=== PATIENT | female | born 1950 | race Caucasian/White ===

== ENCOUNTER 2017-04-09 20:04 | Emergency (ER) | payer MEDICARE ==
[2017-04-09 20:12] VITALS: RESP 18
[2017-04-09] MEDS ORDERED: SODIUM CHLORIDE 0.9% 1,000 ML IV STA (20:30)
[2017-04-09] MEDS ORDERED: ONDANSETRON 4 MG/2 ML VIAL IVP STA (20:30)
[2017-04-09] MEDS ORDERED: ACETAMINOPHEN TAB 500 MG TAB PO STA (20:31)
--- NOTE | 2017-04-09 21:00 | XR ---
EXAMINATION TYPE: XR chest 2V DATE OF EXAM: 04/09/2017 COMPARISON: NONE HISTORY: Cough and congestion TECHNIQUE: Frontal and lateral views of the chest are obtained. FINDINGS: There is no focal air space opacity, pleural effusion, or pneumothorax seen. The cardiac silhouette size is within normal limits. The osseous structures are intact. IMPRESSION: No acute cardiopulmonary process.
[2017-04-09 21:02] LABS: Basophils % (A) 0 %; CH 30.2; CHCM 34.6; Eosinophils # (A) 0.1 k/uL (0-0.7); Eosinophils % (A) 1 %; HCT 40.9 % (34.0-46.0); HDW 2.69; Luc % (Auto) 1; Lymphocytes # (A) 0.3 k/uL (1.0-4.8); Lymphocytes % (A) 4 %; MCH 30.1 pg (25.0-35.0); MCHC 34.3 g/dL (31.0-37.0); MCV 87.9 fL (80.0-100.0); Mean Platelet Volume 7.3; Monocytes # (A) 0.4 k/uL (0-1.0); Monocytes % (A) 6 %; Neutrophils # (A) 6.5 k/uL (1.3-7.7); Neutrophils % (A) 88 %; RBC 4.65 m/uL (3.80-5.40); RDW 13.1 % (11.5-15.5); WBC 7.4 k/uL (3.8-10.6); WBC (Perox) 7.56
[2017-04-09 21:13] LABS: ALT 36 U/L (9-52); AST 48 U/L (14-36); Alkaline Phosphatase 80 U/L (38-126); Amylase 47 U/L (30-110); Anion Gap 12 mmol/L; Blood Urea Nitrogen 9 mg/dL (7-17); Calcium 8.8 mg/dL (8.4-10.2); Carbon Dioxide 22 mmol/L (22-30); Chloride 102 mmol/L (98-107); Glucose 118 mg/dL (74-99); Non-African American GFR(MDRD) >60 (>60 ml/min/1.73 sqM); Potassium 4.1 mmol/L (3.5-5.1); Sodium 136 mmol/L (137-145); Total Bilirubin 0.9 mg/dL (0.2-1.3); Total Protein 6.9 g/dL (6.3-8.2)
--- NOTE | 2017-04-09 21:17 | ED ---
General Adult HPI - General Chief complaint: Nausea/Vomiting/Diarrhea Stated complaint: vomiting Time Seen by Provider: 04/09/17 20:25 Source: patient, family, RN notes reviewed Mode of arrival: ambulatory Limitations: no limitations - History of Present Illness Initial comments: This a 66-year-old female presents emergency Department chief complaint of generalized not feeling well. She states that she's been sick with cold-like symptoms cough congestion runny nose over the last 3 days. Patient went to her primary care physician's office today was diagnosed with sinusitis. Patient was placed on Levaquin. She states that she was given a shot of antibiotics there and sent home on Levaquin. Patient states she did take a dose. She states afternoon started developing some nausea vomiting. She states that symptoms did this with the drainage. Denies any dysuria, hematuria, diarrhea constipation. Denies any chest pain or shortness of breath. She states her cough is productive at times - Related Data Home Medications Medication Instructions Recorded Confirmed Ascorbic Acid [Vitamin C] 1,000 mg PO DAILY 04/09/17 04/09/17 Aspirin EC [Ecotrin Low Dose] 81 mg PO DAILY 04/09/17 04/09/17 Atorvastatin Calcium [Lipitor] 20 mg PO HS 04/09/17 04/09/17 Biotin 5 mg PO DAILY 04/09/17 04/09/17 Calcium/Magnesium 1000mg/500mg 1 tab PO DAILY 04/09/17 04/09/17 Cholecalciferol [Vitamin D3] 2,000 unit PO DAILY 04/09/17 04/09/17 Ginkgo Biloba [place] Extract [Ginkgo 120 mg PO DAILY 04/09/17 04/09/17 Biloba Extract] Levofloxacin [Levaquin] 500 mg PO DAILY 04/09/17 04/09/17 Lutein 20 mg PO DAILY 04/09/17 04/09/17 Multivitamins, Thera [Multivitamin 1 tab PO DAILY 04/09/17 04/09/17 (formulary)] Oxybutynin Chloride [Ditropan] 5 mg PO BID 04/09/17 04/09/17 Ubidecarenone [Co Q-10] 100 mg PO DAILY 04/09/17 04/09/17 Previous Rx's Medication Instructions Recorded Ondansetron Odt [Zofran Odt] 4 mg PO Q8HR PRN #10 tab 04/09/17 Allergies Allergy/AdvReac Type Severity Reaction Status Date / Time cephalexin [From Keflex] Allergy Abdominal Verified 04/09/17 20:42 Pain Review of Systems ROS Statement: Those systems with pertinent positive or pertinent negative responses have been documented in the HPI. ROS Other: All systems not noted in ROS Statement are negative. Past Medical History Past Medical History: Hyperlipidemia History of Any Multi-Drug Resistant Organisms: None Reported Past Surgical History: No Surgical Hx Reported Past Psychological History: No Psychological Hx Reported Smoking Status: Never smoker Past Alcohol Use History: None Reported Past Drug Use History: None Reported General Exam Limitations: no limitations General appearance: alert, in no apparent distress Head exam: Present: atraumatic, normocephalic, normal inspection Eye exam: Present: normal appearance, PERRL, EOMI. Absent: scleral icterus, conjunctival injection, periorbital swelling ENT exam: Present: mucous membranes moist, TM's normal bilaterally, normal external ear exam. Absent: normal oropharynx (Post nasal drainage, mild sinus tenderness) Neck exam: Present: normal inspection, full ROM. Absent: tenderness, meningismus, lymphadenopathy Respiratory exam: Present: rhonchi (Right mid to lower). Absent: normal lung sounds bilaterally, respiratory distress, wheezes, rales, stridor Cardiovascular Exam: Present: regular rate, normal rhythm, normal heart sounds. Absent: systolic murmur, diastolic murmur, rubs, gallop, clicks GI/Abdominal exam: Present: soft, normal bowel sounds. Absent: distended, tenderness, guarding, rebound, rigid Back exam: Absent: CVA tenderness (R), CVA tenderness (L) Skin exam: Present: warm, dry, intact, normal color. Absent: rash Course Vital Signs 04/09/17 20:10 Temperature 101.3 F H Pulse Rate 98 Respiratory 18 Rate Blood Pressure 130/60 O2 Sat by Pulse 97 Oximetry Medical Decision Making - Medical Decision Making 66-year-old female presents emergency Department for cough, congestion and nausea and vomiting Patient does feel improved after antiemetics and fluids. Patient's chest x-ray read by radiologist as no acute abnormality though patient had some rhonchi right lower. Patient is currently on antibiotics prescribed by PCP she'll continue this. Return parameters were discussed. - Lab Data Result diagrams: 04/09/17 20:44 04/09/17 20:44 Lab Results 04/09/17 04/09/17 Range/Units 20:44 20:44 WBC 7.4 (3.8-10.6) k/uL RBC 4.65 (3.80-5.40) m/uL Hgb 14.0 (11.4-16.0) gm/dL Hct 40.9 (34.0-46.0) % MCV 87.9 (80.0-100.0) fL MCH 30.1 (25.0-35.0) pg MCHC 34.3 (31.0-37.0) g/dL RDW 13.1 (11.5-15.5) % Plt Count 190 (150-450) k/uL Neutrophils % 88 % Lymphocytes % 4 % Monocytes % 6 % Eosinophils % 1 % Basophils % 0 % Neutrophils # 6.5 (1.3-7.7) k/uL Lymphocytes # 0.3 L (1.0-4.8) k/uL Monocytes # 0.4 (0-1.0) k/uL Eosinophils # 0.1 (0-0.7) k/uL Basophils # 0.0 (0-0.2) k/uL Sodium 136 L (137-145) mmol/L Potassium 4.1 (3.5-5.1) mmol/L Chloride 102 (98-107) mmol/L Carbon Dioxide 22 (22-30) mmol/L Anion Gap 12 mmol/L BUN 9 (7-17) mg/dL Creatinine 0.61 (0.52-1.04) mg/dL Est GFR (MDRD) Af Amer >60 (>60 ml/min/1.73 sqM) Est GFR (MDRD) Non-Af >60 (>60 ml/min/1.73 sqM) Glucose 118 H (74-99) mg/dL Calcium 8.8 (8.4-10.2) mg/dL Total Bilirubin 0.9 (0.2-1.3) mg/dL AST 48 H (14-36) U/L ALT 36 (9-52) U/L Alkaline Phosphatase 80 (38-126) U/L Total Protein 6.9 (6.3-8.2) g/dL Albumin 4.0 (3.5-5.0) g/dL Amylase 47 (30-110) U/L Lipase 62 (23-300) U/L Disposition Clinical Impression: Nausea & vomiting, Acute bacterial bronchitis Disposition: HOME SELF-CARE Condition: Stable Instructions: Acute Nausea and Vomiting (ED) Additional Instructions: Please return to the Emergency Department if symptoms worsen or any other concerns. Prescriptions: Ondansetron Odt [Zofran Odt] 4 mg PO Q8HR PRN #10 tab PRN Reason: Nausea Referrals: Jake Bourgeois DO [Primary Care Provider] - 1-2 days Time of Disposition: 21:22
[2017-04-09 21:34] VITALS: BP 103/53; PULSE 89; TEMP 100.8
== END 2017-04-09 21:34 | disposition home or self-care (01) ==
LOC: EC 20:04
DX: J20.9 Acute bronchitis, unspecified (principal); R11.2 Nausea with vomiting, unspecified; E78.5 Hyperlipidemia, unspecified; Z79.82 Long term (current) use of aspirin; Z79.899 Other long term (current) drug therapy; Z88.1 Allergy status to other antibiotic agents
CPT/HCPCS: 36415; 80053; 82150; 83690; 85025; 71020; 99284; 96374; 96361; J2405

== ENCOUNTER → 2018-11-04 | Outpatient (CLI) | payer MEDICARE ==
--- NOTE | 2018-11-04 11:20 | XR ---
Cervical spine HISTORY: Neck pain 5 views of the cervical spine Cervical vertebral bodies show preserved height, bone mineralization is mildly reduced. Anterolisthes is grade 1 C2-3, retrolisthesis grade 1 C5-6. Loss of disc height present at the intervertebral level s C3-4 through C7-T1. There is multilevel spondylosis. Prevertebral soft tissues are normal. Multilev el facet arthropathy changes. Odontoid view is limited. No significant foraminal encroachment on the left, some right-sided foraminal encroachment at C5-6. IMPRESSION: Degenerative disc disease, facet arthropathy.
== END | disposition home or self-care (01) ==
LOC: RADXRYALE 10:20
PROVIDERS: ATTEND Physician Assistant Medical
DX: M50.30 Other cervical disc degeneration, unspecified cervical region (principal); M46.92 Unspecified inflammatory spondylopathy, cervical region
CPT/HCPCS: 72050

== ENCOUNTER → 2019-12-02 | Outpatient (CLI) | payer MEDICARE ==
--- NOTE | 2019-12-02 15:41 | XR ---
Abdomen 2 view HISTORY: Pain 2 views the abdomen There is a scoliotic curvature to the lumbar spine. Lung bases are clear. There is ill-defined cresce ntic increased density present in the left hemiabdomen seen on one of the 2 views. No evident bowel o bstruction or pneumoperitoneum. Probable vascular calcifications within the pelvis. There is overlyin g artifact. IMPRESSION: Ill-defined increased attenuation may be due to radiopaque medicine, correlate for histor y. Nonobstructive bowel gas pattern. Scoliosis.
== END | disposition home or self-care (01) ==
LOC: RADXRYALE 14:34
PROVIDERS: ATTEND Physician Assistant Medical
DX: R10.84 Generalized abdominal pain (principal)
CPT/HCPCS: 74019

== ENCOUNTER → 2019-12-26 | Outpatient (CLI) | payer MEDICARE ==
--- NOTE | 2019-12-26 10:37 | FL ---
"EXAMINATION TYPE: FL barium swallow DATE OF EXAM: 12/26/2019 CLINICAL HISTORY: Dysphagia and reflux TECHNIQUE: A double contrast esophagram is performed utilizing air and barium. A total of 68 second s of fluoroscopic time was utilized during procedure. 31 fluoroscopic images were saved. COMPARISON: None FINDINGS: The upper esophagus shows normal motility. There is marked delayed emptying into the stomac h at the distal esophagus just before the gastroesophageal junction on multiple swallowing attempts. This results in stasis of contrast in the distal esophagus and moderate intraesophageal reflux. Event ual passage through the distal esophagus is seen into the stomach. No hiatal hernia is seen. IMPRESSION: Distal esophageal nonobstructive stricture resulting in delayed passage of contrast throu gh the distal esophagus and moderate intraesophageal reflux. Endoscopy is recommended. 1. A Yellow level critical message alert has been initiated for Jake Bourgeois DO via the [employer] | Critical Results System on 12/26/2019 10:34 AM. This message alert has been sent to Jake Noe DO via the preferences provided by the clinician for the receipt of Radiology Critical Find ings. Message ID [id number]."
== END | disposition home or self-care (01) ==
LOC: RADUSWWP 09:50
PROVIDERS: ATTEND Family Medicine
DX: K21.9 Gastro-esophageal reflux disease without esophagitis (principal); K22.2 Esophageal obstruction
CPT/HCPCS: 74220

== ENCOUNTER → 2020-03-26 | Outpatient (CLI) | payer MEDICARE | END | disposition home or self-care (01) | LOC: LABWHC1 10:48 | PROVIDERS: ATTEND Internal Medicine | DX: Z11.59 Encounter for screening for other viral diseases (principal) ==

== ENCOUNTER → 2020-03-30 | Day surgery (SDC) | payer MEDICARE ==
[2020-03-26 09:04] VITALS: BMI 20.9
[~2020-03-30] MED LIST: LACTATED RINGERS 1,000 ML IV SCH; LIDOCAINE 1% (10MG/ML) FOR IV START INTRADERMA PRN; PROPOFOL 10 MG/ML 20 ML VIAL IV ONE
[2020-03-30 07:47] VITALS: RESP 17; TEMP 98
--- NOTE | 2020-03-30 08:30 | P.PCN ---
Date of Procedure: 03/30/20 Description of Procedure: BRIEF HISTORY: Patient is a 69-year-old female with a known history of GERD presenting for evaluation of dysphagia. Reports intermittent dysphagia, leading to solid foods. She does have a known history of GERD on PPI therapy. PROCEDURE PERFORMED: Esophagogastroduodenoscopy with biopsy and scope balloon dilation . PREOPERATIVE DIAGNOSIS: Esophageal dysphagia, GERD ESTIMATED BLOOD LOSS: Minimal. IV sedation per anesthesia. PROCEDURE: After informed consent was obtained, the patient was brought into the endoscopy unit. IV sedation was administered by Anesthesia under continuous monitoring. Initially the Olympus GIF-190 video endoscope was inserted into the mouth. Esophagus intubated without any difficulty. It was gradually advanced into the stomach and duodenum and carefully examined. The bulb and the second part of the duodenum appeared normal, With biopsies. The scope at this time was withdrawn to the stomach, adequately insufflated with air, and upon careful examination, mucosa of the antrum, body, cardia and the fundus appeared normal, Except for some mild scattered erythema in the antrum and body suggestive of mild gastritis with biopsies taken. The scope was then withdrawn into the esophagus. The GE junction was located at 39 cm from the incisors. The esophagus appearedgrossly normal however was somewhat tortuous suggestive of presbyesophagus with mid esophageal biopsies taken. The distal esophagus was also dilated with a through -the-scope balloon dilator serially to 15 mm and 16.5 mm respectively. There were no erosions or ulcerations seen and the patient tolerated the procedure well. IMPRESSION: 1. Mild gastritis antrum and body, biopsied . 2. No strictures or masses noted but the esophagus was somewhat tortuous suggestive of presbyesophagus, with mid esophageal biopsies taken and serial dilation of the distal esophagus with a scope balloon dilator. 3. Duodenal biopsies. RECOMMENDATIONS: The findings of this examination were discussed with the patient. Okay to resume diet. Continue PPI therapy. Await pathology from biopsies. Would recommend with some modifications including sitting upright while eating, eating slowly, small bites of food and sips of liquids between bites of solid food. If dysphagia persists can consider manometry for further evaluation.
[2020-03-30 08:40] VITALS: BP 110/73; PULSE 78
== END ==
LOC: ORWHC2ENDO 07:18
PROVIDERS: ATTEND Internal Medicine
DX: K22.8 Other specified diseases of esophagus (principal); K21.9 Gastro-esophageal reflux disease without esophagitis; K29.50 Unspecified chronic gastritis without bleeding; Z98.51 Tubal ligation status; Z98.890 Other specified postprocedural states; Z97.2 Presence of dental prosthetic device (complete) (partial); E78.5 Hyperlipidemia, unspecified; Z79.82 Long term (current) use of aspirin; Z79.899 Other long term (current) drug therapy; Z88.1 Allergy status to other antibiotic agents
CPT/HCPCS: 88305; 88312; 43239; 43249; J2704; C1726

== ENCOUNTER → 2020-06-24 | Day surgery (SDC) | payer MEDICARE ==
[2020-06-21 09:18] VITALS: BMI 20.7
[~2020-06-24] MED LIST changes: +LACTATED RINGERS 1,000 ML IV ONE; +LIDOCAINE 1% (10MG/ML) FOR IV START INTRADERMA ONE; -LIDOCAINE 1% (10MG/ML) FOR IV START INTRADERMA PRN
[2020-06-24 09:18] VITALS: TEMP 97.3
--- NOTE | 2020-06-24 11:01 | P.PCN ---
Date of Procedure: 06/24/20 Description of Procedure: BRIEF HISTORY: Patient is a 69-year-old female presented for outpatient colonoscopy for evaluation of colon polyps. Last colonoscopy approximately 6 years ago per the patient report. No abdominal pain, family history of colon cancer or blood per rectum reported. PROCEDURE PERFORMED: Colonoscopy with polypectomy. PREOPERATIVE DIAGNOSIS: Personal history of colon polyps, patient reports last colonoscopy 6 years ago. ESTIMATED BLOOD LOSS: Minimal. IV sedation per Anesthesia. PROCEDURE: After informed consent was obtained, the patient, was brought into the endoscopy unit. IV sedation was administered by Anesthesia under continuous monitoring. Digital rectal examination was normal. Initially the Olympus CF-190 flexible video colonoscope was then inserted in the rectum, gradually advanced into the cecum without any difficulty. Careful examination was performed as the scope was gradually being withdrawn. Ileocecal valve and the appendiceal orifice were visualized and appeared normal. Prep was excellent. 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 There was diminutive 2 mm sessile polyp found in the descending colon removed with cold forcep polypectomy. A few small scattered diverticula also noted in the left colon. Retroflexion was performed in the rectum and no lesions were seen. The patient tolerated the procedure well. IMPRESSION: Diminutive descending colon polyp removed with cold forcep polypectomy. Mild left colonic diverticulosis. RECOMMENDATIONS: Findings of this examination were discussed with the patient and her sister. Okay to resume diet. Okay to resume medications. No pathology from polypectomy. Would recommend repeat colonoscopy in 7 years pending pathology from polypectomy.
[2020-06-24 11:24] VITALS: RESP 18
[2020-06-24 11:48] VITALS: BP 131/68; PULSE 64
== END ==
LOC: ORWHC2ENDO 08:55
PROVIDERS: ATTEND Internal Medicine
DX: Z12.11 Encounter for screening for malignant neoplasm of colon (principal); D12.4 Benign neoplasm of descending colon; K57.30 Diverticulosis of large intestine without perforation or abscess without bleeding; Z86.010 Personal history of colon polyps; Z88.1 Allergy status to other antibiotic agents; Z88.0 Allergy status to penicillin; Z79.899 Other long term (current) drug therapy; Z98.890 Other specified postprocedural states; E78.5 Hyperlipidemia, unspecified; K21.9 Gastro-esophageal reflux disease without esophagitis; Z97.2 Presence of dental prosthetic device (complete) (partial)
CPT/HCPCS: 88305; 45380; J2704

== ENCOUNTER → 2022-10-31 | Outpatient (CLI) | payer MEDICARE ==
--- NOTE | 2022-11-01 09:51 | XR ---
EXAM TYPE: LUMBAR SPINE X RAY SERIES COMPARISON: NONE HISTORY: Pain TECHNIQUE: 4 views are submitted. FINDINGS: Alignment is anatomic. The pedicles are intact. The transverse processes are intact. There is scol iosis with multilevel severe degenerative disc disease. Hypertrophic spurring. Facet arthropathy with in the lower lumbar spine. IMPRESSION: Scoliosis with multilevel moderate to severe degenerative disc disease.
== END | disposition home or self-care (01) ==
LOC: RADXRYALE 15:28
PROVIDERS: ATTEND Family Medicine
DX: M51.36 Other intervertebral disc degeneration, lumbar region (principal); M41.86 Other forms of scoliosis, lumbar region
CPT/HCPCS: 72110

== ENCOUNTER → 2023-08-22 | Outpatient (CLI) | payer MEDICARE ==
--- NOTE | 2023-08-22 23:33 | BD ---
EXAMINATION TYPE: Axial Bone Density DATE OF EXAM: 08/22/2023 CLINICAL HISTORY: 72 years old Female. ICD-10 CODE: M81.0 AGE RELATED OSTEOPOROSIS Height: 60.2 in Weight: 111 lbs FRAX RISK QUESTIONS: Secondary Osteoporosis: 3. Menopause before 45: age 50 RISK FACTORS HISTORY OF: Family History of Osteoporosis: yes mother Active: yes Diet low in dairy products/other sources of calcium: yes Postmenopausal woman: age 50 MEDICATIONS: Osteoporosis Medications: yes Which medication: alendronate sodium How Lon year + Additional Medications: cholesterol, inflammation meds, muscle spasm meds EXAM MEASUREMENTS: Bone mineral densitometry was performed using the [employer] System. Bone mineral density as measured about the Lumbar spine is: ----- L1-L4(G/cm2): 1.141 T Score Values are as follows: ----- L1: -1.1 ----- L2: -1.4 ----- L3: 0.0 ----- L4: 0.7 ----- L1-L4: -0.3 Z Score Values are as follows: ----- L1: 1.1 ----- L2: 0.8 ----- L3: 2.2 ----- L4: 2.9 ----- L1-L4: 1.9 Bone mineral density has: Increased 4.5% since study of: 02/10/2016 Bone mineral density about the R hip (g/cm2): 0.838 Bone mineral density about the L hip (g/cm2): 0.811 T Score values are as follows: -----R Neck: -1.4 -----L Neck: -1.2 -----R Total: -1.3 -----L Total: -1.6 Z Score values are as follows: -----R Neck: 0.8 -----L Neck: 0.9 -----R Total: 0.6 -----L Total: 0.4 FRAX%s: The graph provided illustrates a 9.4% chance for a major osteoporotic fx and a 1.6% chance fo r the hips probability for fx in 10 years time. IMPRESSION: Osteopenia (T Score between -2.5 and -1). There is slightly increased risk of fracture and the patient may be considered for treatment. Re-Screen 2-5 years. NOTE: T-SCORE=SD OF THE YOUNG ADULT MEAN.
--- NOTE | 2023-08-23 10:05 | MM ---
Reason for Exam: Screening (asymptomatic). Last screening mammogram was performed 12 month(s) ago. Patient History: Menarche at age 12. First Full-Term at age 19. Postmenopausal. 2000, Benign Core Biopsy on the left side. Risk Values: Melanie 5 year model risk: 1.5%. NCI Lifetime model risk: 3.9%. Prior Study Comparison: Screening Mammogram, [facility]. 04/10/2008 Bilateral Screening Mammogram, [facility]. 12/31/2015 Left Diagnostic Ultrasound, [facility]. 04/19/2020 Bilateral Screening Mammogram, [facility]. 05/24/2021 Bilateral Screening Mammogram, [facility]. 08/11/2022 Bilateral Screening Mammogram, Unknown. Tissue Density: The breast tissue is heterogeneously dense. This may lower the sensitivity of mammography. Findings: Analyzed By CAD. There is no suspicious group of microcalcifications or new suspicious mass in either breast. Biopsy clip within the left breast. Overall Assessment: Benign, BI-RAD 2 Management: Screening Mammogram of both breasts in 1 year. A clinical breast exam by your physician is recommended on an annual basis and results should be correlated with mammographic findings. Note on Melanie scores and lifetime risk: 1. A Melanie score greater than 3% is considered moderate risk. If this is the case, consider specialist referral to assess eligibility for a risk reducing agent. If overall lifetime risk for the development of breast cancer is 20% or higher, the patient may qualify for future screening with alternating mammogram and breast MRI. Electronically signed and approved by: Rashard Velarde D.O.
== END | disposition home or self-care (01) ==
LOC: RADMAMWWP 12:59
PROVIDERS: ATTEND Family Medicine
DX: Z12.31 Encounter for screening mammogram for malignant neoplasm of breast (principal); M81.0 Age-related osteoporosis without current pathological fracture; M85.89 Other specified disorders of bone density and structure, multiple sites; Z78.0 Asymptomatic menopausal state
CPT/HCPCS: 77063; 77067; 77080

== ENCOUNTER → 2024-03-07 | Outpatient (CLI) | payer MEDICARE ==
[2024-03-07 14:32] LABS: Basophils # (A) 0.04 X 10*3/uL (0.00-0.10); Basophils % (A) 0.8 %; Eosinophils # (A) 0.08 X 10*3/uL (0.04-0.35); Eosinophils % (A) 1.7 %; HCT 43.1 % (37.2-46.3); HGB 13.7 g/dL (12.0-15.0); Lymphocytes # (A) 1.29 X 10*3/uL (0.90-5.00); MCH 29.7 pg (27.0-32.0); MCHC 31.8 g/dL (32.0-37.0); MCV 93.3 FL (80.0-97.0); Mean Platelet Volume 10.9 FL (9.5-12.2); Monocytes # (A) 0.61 X 10*3/uL (0.20-1.00); Monocytes % (A) 12.8 %; NRBC Per 100 WBC 0 X 10*3/uL (0.00-0.01); Neutrophils # (A) 2.75 X 10*3/uL (1.80-7.70); Neutrophils % (A) 57.5 %; Platelet Count 247 X 10*3/uL (140-440); RBC 4.62 X 10*6/uL (4.10-5.20); RDW 13.5 % (11.5-14.5); WBC 4.78 X 10*3/uL (4.50-10.00)
[2024-03-07 15:32] LABS: Blood Urea Nitrogen 23.1 mg/dL (9.0-27.0); Carbon Dioxide 28.4 mmol/L (21.6-31.8); Chloride 105 mmol/L (96-109); Potassium 4.1 mmol/L (3.5-5.5); Sodium 146 mmol/L (135-145)
== END | disposition home or self-care (01) ==
LOC: LABPAT 09:24
PROVIDERS: ATTEND Family Medicine
DX: Z01.818 Encounter for other preprocedural examination (principal); N81.11 Cystocele, midline; R94.31 Abnormal electrocardiogram [ECG] [EKG]
CPT/HCPCS: 80051; 82565; 84520; 85025; 86850; 86900; 86901; 87086; 93005

== ENCOUNTER 2024-03-17 05:37 | Day surgery (SDC) | payer MEDICARE ==
[2024-03-11 12:11] VITALS: BMI 18.1
--- NOTE | 2024-03-14 09:45 | P.HPIHPCON ---
History of Present Illness H&P Date: 03/14/24 Chief Complaint: Pelvic Organ Prolapse Ms. Reece is a 73 year old with pelvic organ prolapse for the past 2 years. She has a lemon sized bulge at the vagina. She also complains of urge incontinence. She denies stress incontinence or fecal incontinence. She is no longer sexually active. Consent for Procedure: I have explained the operation/procedure to the patient, including the risks, benefits, side effects, alternative therapies (including not receiving the proposed treatment or service), the likelihood of the patient achieving his/her goals, and potential recuperation problems for the procedure/sedation/analgesia, as well as any blood products, if indicated. I also explained to the patient the risks, benefits and side effects of the alternatives, as well as the risks related to not receiving the proposed procedure, care, treatment, or services. Past Medical History Past Medical History: Cancer, GERD/Reflux, Hyperlipidemia, Mitral Valve Prolapse (MVP) Additional Past Medical History / Comment(s): prolapse uterus, follows with Dr Uribe every 6 months for mitral valve prolapse w/ regurgitation, hx. colon polyps,skin CA removed neck and left leg History of Any Multi-Drug Resistant Organisms: None Reported Past Surgical History: Orthopedic Surgery Additional Past Surgical History / Comment(s): EGD/colonoscopy, bunionectomy,agnes cataracts Past Anesthesia/Blood Transfusion Reactions: No Reported Reaction Smoking Status: Never smoker - Past Family History Mother Additional Family Medical History / Comment(s): heart problems Medications and Allergies Home Medications Medication Instructions Recorded Confirmed Type Ascorbic Acid [Vitamin C] 1,000 mg PO DAILY 04/09/17 03/11/24 History Atorvastatin Calcium [Lipitor] 20 mg PO HS 04/09/17 03/11/24 History Biotin 5 mg PO DAILY 04/09/17 03/11/24 History Cholecalciferol [Vitamin D3] 2,000 unit PO DAILY 04/09/17 03/11/24 History Ginkgo Biloba [place] Extract [Ginkgo 120 mg PO DAILY 04/09/17 03/11/24 History Biloba Extract] Lutein 20 mg PO DAILY 04/09/17 03/11/24 History Ubidecarenone [Co Q-10] 100 mg PO DAILY 04/09/17 03/11/24 History oxyBUTYnin chloride [Ditropan] 5 mg PO BID 04/09/17 03/11/24 History Omeprazole [PriLOSEC] 20 mg PO DAILY PRN 03/30/20 03/11/24 History diphenhydrAMINE [Benadryl] 25 mg PO HS PRN 06/21/20 03/11/24 History Acetaminophen [Tylenol Extra 650 mg PO DAILY PRN 03/11/24 03/11/24 History Strength] Alendronate Sodium [Fosamax] 70 mg PO MO 03/11/24 03/11/24 History Calcium Carbonate [Calcium] 500 mg PO DAILY 03/11/24 03/11/24 History Cetirizine HCl [Zyrtec] 10 mg PO DAILY 03/11/24 03/11/24 History Cider Vinegar [Apple Cider Vinegar] 300 mg PO DAILY 03/11/24 03/11/24 History Cyclobenzaprine [Flexeril] 5 - 10 mg PO DAILY PRN 03/11/24 03/11/24 History Docusate [Colace] 100 mg PO DAILY 03/11/24 03/11/24 History Magnesium Oxide [Magnesium] 500 mg PO DAILY 03/11/24 03/11/24 History Melatonin 10 mg PO HS 03/11/24 03/11/24 History Meloxicam [Mobic] 15 mg PO DAILY 03/11/24 03/11/24 History Turmeric Root Extract [Turmeric] 500 mg PO DAILY 03/11/24 03/11/24 History Zinc Gluconate [Zinc] 50 mg PO DAILY 03/11/24 03/11/24 History polyethylene glycoL 3350 [Miralax] 17 gm PO DAILY 03/11/24 03/11/24 History Allergies Allergy/AdvReac Type Severity Reaction Status Date / Time adhesive tape Allergy Rash/Hives Verified 03/11/24 12:02 amoxicillin [From Augmentin] Allergy throat Verified 03/11/24 11:41 swelling cephalexin [From Keflex] Allergy Abdominal Verified 03/11/24 11:41 Pain clavulanic acid Allergy throat Verified 03/11/24 11:41 [From Augmentin] swelling Surgical - Exam Focused physical exam is performed. This is a healthy appearing female in no apparent distress. Breathing is non-labored. Abdomen is soft and non-tender. On pelvic exam, a grade 3 cystocele and grade 2 uterovaginal prolapse is appreciated. Extremities are non-tender and non-edematous. Assessment and Plan Assessment: 73 year old with Grade 3 Cystocele and Grade 2 Uterovaginal Prolapse who presents for Total Vaginal Hysterectomy, Anterior Repair. Plan: Risks, benefits, and alternatives to Total Vaginal Hysterectomy, Anterior Repair are discussed with the patient including risk of bleeding, infection, damage to surrounding structures including bladder/bowel/ureters, post-operative VTE. The patient understands these risks and desires to proceed with surgery as discussed. All questions are answered.
[2024-03-17] MEDS: LACTATED RINGERS 1,000 ML IV SCH (06:45)
[2024-03-17] MEDS: LIDOCAINE 1% (10MG/ML) FOR IV START INTRADERMA ONE (06:45)
[2024-03-17] MEDS: MIDAZOLAM 2 MG/2 ML VIAL IV PRN (07:07)
[2024-03-17] MEDS: DEXAMETHASONE SOD PHOSPHATE 4 MG/ML 1 ML VIAL IV ONE (07:15)
[2024-03-17] MEDS: ONDANSETRON 4 MG/2 ML VIAL IVP ONE (07:15)
[2024-03-17] MEDS: ESTRADIOL 0.1 MG/GM VAGINAL CREAM 42.5 GM TUBE VAGINAL ONE (07:24)
[2024-03-17] MEDS: VASOPRESSIN 20 UNIT/ML 1 ML VIAL SQ ONE ×2 (07:25)
[2024-03-17] MEDS ORDERED: PROPOFOL 10 MG/ML 20 ML VIAL IV ONE (07:26)
[2024-03-17] MEDS ORDERED: SUCCINYLCHOLINE CHLORIDE 200 MG/10 ML VIAL IV ONE (07:26)
[2024-03-17] MEDS ORDERED: LIDOCAINE 1% INJ 10MG/ML (20 ML MDV) ONE (07:26)
[2024-03-17] MEDS ORDERED: fentaNYL (PF) 50 MCG/ML 2 ML AMP ONE (07:26)
[2024-03-17] MEDS ORDERED: ROCURONIUM 10 MG/ML (5 ML VIAL) IV ONE (07:26)
[2024-03-17] MEDS ORDERED: GLYCOPYRROLATE 0.2 MG/ML 2 ML VIAL ONE (07:26)
[2024-03-17] MEDS ORDERED: NEOSTIGMINE 1 MG/ML 10 ML VIAL ONE (07:26)
--- NOTE | 2024-03-17 07:27 | P.ANPRN ---
Procedure Note - Anesthesia - Epidural/Spinal Spinal Time Out Performed: Yes Date of Procedure: 03/17/24 Procedure Start Time: 07:07 Procedure Stop Time: 07:15 Location of Patient: PreOp Indication: Acute Post-Operative Pain, Analgesia, Requested by Surgeon Sedation Type: Sedate with meaningful contact maintained Preparation: Sterile Prep Position: Sitting Catheter: None Needle Guage: 22 Injectate: Duramorph 0.3mg, L4-5 level Blood Aspirated: No Pain Paresthesia on Injection Noted: No Events: Uneventful and Well Tolerated
[2024-03-17] MEDS: LACTATED RINGERS 1,000 ML IV ONE (08:08)
--- NOTE | 2024-03-17 08:48 | P.OP ---
Date of Procedure: 03/17/24 Preoperative Diagnosis: 1. Grade 3 Cystocele 2. Grade 2 Uterovaginal Prolapse Postoperative Diagnosis: Same Procedure(s) Performed: Total Vaginal Hysterectoy, Bilateral Salpingoophorectomy Implants: None Surgeon: Gail Berry Manager Front #1: Altagracia Cocharn Estimated Blood Loss (ml): 25 IV fluids (ml): 700 Urine output (ml): 150 Pathology: other (uterus, cervix, fallopian tubes, ovaries) Condition: stable Disposition: floor Indications for Procedure: 73 year old with Grade 3 Cystocele and Grade 2 Uterovaginal Prolapse who presents for Total Vaginal Hysterectomy, Anterior Repair. Risks, benefits, and alternatives to Total Vaginal Hysterectomy, Anterior Repair are discussed with the patient including risk of bleeding, infection, damage to surrounding structures including bladder/bowel/ureters, post-operative VTE. The patient understands these risks and desires to proceed with surgery as discussed. All questions are answered. Operative Findings: Normal appearing uterus, bilateral fallopian tubes, and ovaries. Description of Procedure: Prior to the beginning of the procedure the team paused to verify the patient's identity, as well as the procedure to be performed and the correct side/site. All equipment required was ready and available. The patient was positioned appropriately. Patient was cleaned and draped and legs were placed in lithotomy position using Shane stirrups. Hurd catheter was placed to drain the bladder. A weighted speculum was placed in the posterior vaginal vault. The cervix was grasped with a double-tooth tenaculum. Vasopressin was injected circumstantially around the cervix. With downward traction, a circumferential incision was made along the vaginal mucosa overlying the reflection. This allowed dissection and entrance into the posterior cul-de-sac. An 0-Vicryl suture was placed to tag the posterior peritoneum. At this time, the uterosacral ligaments were visualized. These were clamped and ligated with 0-Vicryl suture. The uterosacral ligaments were held bilaterally. The cervicovesical space was then created by both blunt and sharp dissection allowing the cardinal ligaments to be visualized. These were clamped and ligated with 0-Vicryl suture as well. Once in the cervicovesical space the uterosacral-cardinal ligament complex was completely ligated with 0-Vicryl suture. The uterine arteries were clamped and ligated with 0-Vicryl suture. The jillian clamps were moved sequentially upward on the uterus until a small adnexal pedicle remained. The anterior cul-de-sac was now entered bluntly. The uterus was inverted and the pedicles were cut. The uterine specimen was delivered and sent for pathology. Bilateral fallopian tubes were grapsed, ligated with a [id number] stitch, and cut. Bilateral uteroovarian ligaments were doubly ligated first with a transfixing 0-Vicryl suture and then reinforced with a free 0-Vicryl tie in the usual fashion. The large weighted speculum was removed and replaced with the small weighted speculum. The peritoneal layer was closed with the 0-Vicryl suture in a purse-string fashion. A modified Bravo Culdoplasty was performed with the uterosacral ligaments held by pieces of 0- Vicryl. The vaginal cuff inferior and superior to the level of the Bravo Culdoplasty was closed with 0-Vicryl suture in a running fashion. After closure of the vaginal cuff, the cystocele has been significantly reduced and it was not felt that the patient needed an anterior repair after the hysterectomy was completed. After completion of the case, a hurd catheter was inserted and noted to move freely into the urethra without tension. Clear urine was noted to drain from the catheter. Excellent hemostasis was noted at the end of the case. The vagina was packed with 1-inch iodoform packing coated in vaginal estrace cream. All instruments were removed from the patient. She was cleaned, dried, and awakened from anesthesia without difficulty. A physician certified surgical assistant was utilized for the entire procedure due to the need for tissue retraction, dissection of vital structures, prevention and management of blood loss, and reduction in overall operative and anesthesia time as is the standard of care. Sponge, lap, instrument, and needle counts were correct x2. She was taken to the PACU in stable condition.
[2024-03-17] MEDS ORDERED: SIMETHICONE 80 MG CHEWABLE PO PRN (08:51)
[2024-03-17] MEDS: HYDROmorphone 0.5 MG/0.5 ML SYRINGE IVP PRN (09:15)
[2024-03-17 10:14] VITALS: RESP 16
[2024-03-17] MEDS: IBUPROFEN 600 MG TAB PO PRN (16:05)
[2024-03-17] MEDS: ACETAMINOPHEN TAB 325 MG TAB PO PRN (20:52)
--- NOTE | 2024-03-18 08:25 | P.DS ---
Providers Date of admission: 03/17/24 Expected date of discharge: 03/18/24 Attending physician: Gail Berry MD [facility] Course: Ms. Reece is a 73 year old who is POD#1 s/p TVH, BSO. The patient is doing well this morning and had no acute events overnight. She has no complaints this morning. She reports minimal vaginal spotting, passing flatus, voiding without difficulty, ambulating, and eating/drinking without nausea or vomiting. She denies chest pain, shortness of breathing, fevers, or chills overnight. She denies pain or swelling in the legs. Postoperative restrictions are reviewed with the patient including pelvic rest for 6 weeks, no lifting heavier than 15 pounds for 4 weeks. The patient is encouraged to call the office if she experiences any heavy bleeding, foul-smelling discharge, or any if she has any other concerns. She will follow up in the office with in 6 weeks for postoperative exam. All questions are answered. Assessment: 73 year old POD#1 s/p TVH, BSO Patient Condition at Discharge: Good Plan - Discharge Summary Discharge Rx Participant: No New Discharge Prescriptions: No Action oxyBUTYnin chloride [Ditropan] 5 mg PO BID Atorvastatin Calcium [Lipitor] 20 mg PO HS Lutein 20 mg PO DAILY Biotin 5 mg PO DAILY Ubidecarenone [Co Q-10] 100 mg PO DAILY Ginkgo Biloba [place] Extract [Ginkgo Biloba Extract] 120 mg PO DAILY Cholecalciferol [Vitamin D3] 2,000 unit PO DAILY Ascorbic Acid [Vitamin C] 1,000 mg PO DAILY Omeprazole [PriLOSEC] 20 mg PO DAILY PRN PRN Reason: Heartburn diphenhydrAMINE [Benadryl] 25 mg PO HS PRN PRN Reason: sleeping Cider Vinegar [Apple Cider Vinegar] 300 mg PO DAILY Zinc Gluconate [Zinc] 50 mg PO DAILY Cyclobenzaprine [Flexeril] 5 - 10 mg PO DAILY PRN PRN Reason: Pain Turmeric Root Extract [Turmeric] 500 mg PO DAILY Melatonin 10 mg PO HS Docusate [Colace] 100 mg PO DAILY Magnesium Oxide [Magnesium] 500 mg PO DAILY polyethylene glycoL 3350 [Miralax] 17 gm PO DAILY Calcium Carbonate [Calcium] 500 mg PO DAILY Meloxicam [Mobic] 15 mg PO DAILY Cetirizine HCl [Zyrtec] 10 mg PO DAILY Alendronate Sodium [Fosamax] 70 mg PO MO Acetaminophen [Tylenol Extra Strength] 650 mg PO DAILY PRN PRN Reason: Pain Discharge Medication List Ascorbic Acid [Vitamin C] 1,000 mg PO DAILY 04/09/17 [History] Atorvastatin Calcium [Lipitor] 20 mg PO HS 04/09/17 [History] Biotin 5 mg PO DAILY 04/09/17 [History] Cholecalciferol [Vitamin D3] 2,000 unit PO DAILY 04/09/17 [History] Ginkgo Biloba [place] Extract [Ginkgo Biloba Extract] 120 mg PO DAILY 04/09/17 [History] Lutein 20 mg PO DAILY 04/09/17 [History] Ubidecarenone [Co Q-10] 100 mg PO DAILY 04/09/17 [History] oxyBUTYnin chloride [Ditropan] 5 mg PO BID 04/09/17 [History] Omeprazole [PriLOSEC] 20 mg PO DAILY PRN 03/30/20 [History] diphenhydrAMINE [Benadryl] 25 mg PO HS PRN 06/21/20 [History] Acetaminophen [Tylenol Extra Strength] 650 mg PO DAILY PRN 03/11/24 [History] Alendronate Sodium [Fosamax] 70 mg PO MO 03/11/24 [History] Calcium Carbonate [Calcium] 500 mg PO DAILY 03/11/24 [History] Cetirizine HCl [Zyrtec] 10 mg PO DAILY 03/11/24 [History] Cider Vinegar [Apple Cider Vinegar] 300 mg PO DAILY 03/11/24 [History] Cyclobenzaprine [Flexeril] 5 - 10 mg PO DAILY PRN 03/11/24 [History] Docusate [Colace] 100 mg PO DAILY 03/11/24 [History] Magnesium Oxide [Magnesium] 500 mg PO DAILY 03/11/24 [History] Melatonin 10 mg PO HS 03/11/24 [History] Meloxicam [Mobic] 15 mg PO DAILY 03/11/24 [History] Turmeric Root Extract [Turmeric] 500 mg PO DAILY 03/11/24 [History] Zinc Gluconate [Zinc] 50 mg PO DAILY 03/11/24 [History] polyethylene glycoL 3350 [Miralax] 17 gm PO DAILY 03/11/24 [History] Follow up Appointment(s)/Referral(s): Gail Berry MD [STAFF PHYSICIAN] - 6 Weeks Activity/Diet/Wound Care/Special Instructions: Postoperative Instructions 1. No heavy lifting or straining (exercising) until after 6 week checkup. 2. Do not resume sexual relations for 6 weeks or longer if uncomfortable. 3. Keep abdominal incision clean and dry: You may wear a dressing if more comfortable. 4. Keep any areas repaired with stitches clean and dry. 5. Call the office, , within the next week to make appointment for your 2 week checkup 6. Report any of the following occurrences to the doctor promptly: a. Heavy, excessive bleeding b. Chills, fever c. Burning or frequency of urination d. Pain or redness around the incisions Discharge Disposition: HOME SELF-CARE
[2024-03-18 08:40] LABS: Basophils % (A) 0 %; Eosinophils # (A) 0.1 k/uL (0-0.7); Eosinophils % (A) 1 %; HCT 43.2 % (34.0-46.0); HGB 13.7 gm/dL (11.4-16.0); Lymphocytes # (A) 1.8 k/uL (1.0-4.8); Lymphocytes % (A) 20 %; MCH 29.1 pg (25.0-35.0); MCHC 31.7 g/dL (31.0-37.0); MCV 91.9 fL (80.0-100.0); Mean Platelet Volume 7.5; Monocytes # (A) 0.6 k/uL (0-1.0); Monocytes % (A) 7 %; Neutrophils # (A) 6.5 k/uL (1.3-7.7); Neutrophils % (A) 71 %; Platelet Count 267 k/uL (150-450); RDW 13.5 % (11.5-15.5); WBC 9.1 k/uL (3.8-10.6)
--- NOTE | 2024-03-18 08:46 | P.PN ---
Progress Note - Text Progress Note Date: 03/18/24 Patient was seen and examined side. Received intrathecal morphine 300 mcg for postop pain control as per surgeon request. Today postop day 1 Total Vaginal Hysterectoy, Bilateral Salpingoophorectomy. Today she is complaining her pain levels 1-2 out of 10 in severity. Able to ambulate without any difficulty. Denied any weakness, mild itching. Physical exam: Vitals : stable vitals, afebrile Assessment and plan: S/p postop day 1 Total Vaginal Hysterectoy, Bilateral Salpingoophorectomy. Continue oral pain medications as needed as per primary care. Please contact anesthesia as needed.
[2024-03-18] MEDS ORDERED: ACETAMINOPHEN TAB 325 MG TAB PO PRN (08:52)
[2024-03-18 09:43] VITALS: BP 136/77; PULSE 92; TEMP 97.4
== END 2024-03-18 11:00 | disposition home or self-care (01) ==
LOC: OR 05:37 → 4FBP 08:51 → OR 03-18 11:00
PROVIDERS: ATTEND Obstetrics & Gynecology
DX: N81.4 Uterovaginal prolapse, unspecified (principal); G89.18 Other acute postprocedural pain; N84.1 Polyp of cervix uteri; N80.03 Adenomyosis of the uterus; N83.8 Other noninflammatory disorders of ovary, fallopian tube and broad ligament; K21.9 Gastro-esophageal reflux disease without esophagitis; I10 Essential (primary) hypertension; I34.1 Nonrheumatic mitral (valve) prolapse; Z79.899 Other long term (current) drug therapy; Z79.1 Long term (current) use of non-steroidal anti-inflammatories (NSAID); Z88.0 Allergy status to penicillin
CPT/HCPCS: 85025; 88307; 57240; 58262; J2250; J1100; J0690; J2405; J1170

== ENCOUNTER → 2024-04-11 | Outpatient (CLI) | payer MEDICARE ==
[2024-04-11 15:45] LABS: HCT 43.6 % (34.0-46.0); HGB 13.9 gm/dL (11.4-16.0); MCH 29.8 pg (25.0-35.0); MCHC 31.8 g/dL (31.0-37.0); MCV 93.5 fL (80.0-100.0); Platelet Count 233 k/uL (150-450); RBC 4.66 m/uL (3.80-5.40); RDW 13.7 % (11.5-15.5); WBC 6.4 k/uL (3.8-10.6)
== END | disposition home or self-care (01) ==
LOC: LABWHC1 15:24
PROVIDERS: ATTEND Internal Medicine Interventional Cardiology
DX: I34.1 Nonrheumatic mitral (valve) prolapse (principal); I38 Endocarditis, valve unspecified
CPT/HCPCS: 36415; 85027; 85379

== ENCOUNTER → 2024-07-15 | Outpatient (CLI) | payer MEDICARE | END | disposition home or self-care (01) | LOC: LABWHC1 15:11 | PROVIDERS: ATTEND Internal Medicine Interventional Cardiology | DX: R07.9 Chest pain, unspecified (principal) | CPT/HCPCS: 36415; 85379 ==

== ENCOUNTER 2024-07-21 12:53 | Emergency (ER) | payer MEDICARE ==
[2024-07-21 13:06] VITALS: BP 137/83; PULSE 88; RESP 18; TEMP 98.3
[2024-07-21] MEDS ORDERED: SODIUM CHLORIDE 0.9% 1,000 ML IV STA (13:21)
--- NOTE | 2024-07-21 13:21 | ED ---
Recheck HPI - General Chief Complaint: Recheck/Abnormal Lab/Rx Stated Complaint: cardiac Time Seen by Provider: 07/21/24 13:20 Source: patient, RN notes reviewed, old records reviewed Mode of arrival: ambulatory Limitations: no limitations - History of Present Illness Initial Comments: This is a 73-year-old female to the ER for evaluation today. Patient coming in for dyspnea and outpatient elevated D-dimer. Patient sent to the ER for further evaluation MD Complaint: abnormal lab (Elevated D-dimer) -: days(s) Returns Today for: Called Because of Abnormal Lab/Test Symptoms Since Prior Visit: no new symptoms Context: planned re-check, called for abnormal lab result Associated Symptoms: none Treatments Prior to Arrival: other - Related Data Home Medications Medication Instructions Recorded Confirmed Ascorbic Acid [Vitamin C] 1,000 mg PO DAILY 04/09/17 03/11/24 Atorvastatin Calcium [Lipitor] 20 mg PO HS 04/09/17 03/11/24 Biotin 5 mg PO DAILY 04/09/17 03/11/24 Cholecalciferol [Vitamin D3] 2,000 unit PO DAILY 04/09/17 03/11/24 Ginkgo Biloba [place] Extract [Ginkgo 120 mg PO DAILY 04/09/17 03/11/24 Biloba Extract] Lutein 20 mg PO DAILY 04/09/17 03/11/24 Ubidecarenone [Co Q-10] 100 mg PO DAILY 04/09/17 03/11/24 oxyBUTYnin chloride [Ditropan] 5 mg PO BID 04/09/17 03/11/24 Omeprazole [PriLOSEC] 20 mg PO DAILY PRN 03/30/20 03/11/24 diphenhydrAMINE [Benadryl] 25 mg PO HS PRN 06/21/20 03/11/24 Acetaminophen [Tylenol Extra 650 mg PO DAILY PRN 03/11/24 03/11/24 Strength] Alendronate Sodium [Fosamax] 70 mg PO MO 03/11/24 03/11/24 Calcium Carbonate [Calcium] 500 mg PO DAILY 03/11/24 03/11/24 Cetirizine HCl [Zyrtec] 10 mg PO DAILY 03/11/24 03/11/24 Cider Vinegar [Apple Cider Vinegar] 300 mg PO DAILY 03/11/24 03/11/24 Cyclobenzaprine [Flexeril] 5 - 10 mg PO DAILY PRN 03/11/24 03/11/24 Docusate [Colace] 100 mg PO DAILY 03/11/24 03/11/24 Magnesium Oxide [Magnesium] 500 mg PO DAILY 03/11/24 03/11/24 Melatonin 10 mg PO HS 03/11/24 03/11/24 Meloxicam [Mobic] 15 mg PO DAILY 03/11/24 03/11/24 Turmeric Root Extract [Turmeric] 500 mg PO DAILY 03/11/24 03/11/24 Zinc Gluconate [Zinc] 50 mg PO DAILY 03/11/24 03/11/24 polyethylene glycoL 3350 [Miralax] 17 gm PO DAILY 03/11/24 03/11/24 Allergies Allergy/AdvReac Type Severity Reaction Status Date / Time adhesive tape Allergy Rash/Hives Verified 07/21/24 13:06 amoxicillin [From Augmentin] Allergy throat Verified 07/21/24 13:06 swelling cephalexin [From Keflex] Allergy Abdominal Verified 07/21/24 13:06 Pain clavulanic acid Allergy throat Verified 07/21/24 13:06 [From Augmentin] swelling Review of Systems ROS Statement: Those systems with pertinent positive or pertinent negative responses have been documented in the HPI. ROS Other: All systems not noted in ROS Statement are negative. Past Medical History Past Medical History: GERD/Reflux, Hyperlipidemia Additional Past Medical History / Comment(s): hx. colon polyps History of Any Multi-Drug Resistant Organisms: None Reported Past Surgical History: Orthopedic Surgery Additional Past Surgical History / Comment(s): EGD/colonoscopy, bunionectomy Past Anesthesia/Blood Transfusion Reactions: No Reported Reaction Past Psychological History: No Psychological Hx Reported Smoking Status: Never smoker Past Alcohol Use History: None Reported Past Drug Use History: None Reported General Exam Limitations: no limitations General appearance: alert, in no apparent distress Head exam: Present: atraumatic, normocephalic, normal inspection Eye exam: Present: normal appearance, PERRL, EOMI. Absent: scleral icterus, conjunctival injection, periorbital swelling ENT exam: Present: normal exam, mucous membranes moist Neck exam: Present: normal inspection. Absent: tenderness, meningismus, lymphadenopathy Respiratory exam: Present: normal lung sounds bilaterally. Absent: respiratory distress, wheezes, rales, rhonchi, stridor Cardiovascular Exam: Present: regular rate, normal rhythm, normal heart sounds. Absent: systolic murmur, diastolic murmur, rubs, gallop, clicks GI/Abdominal exam: Present: soft, normal bowel sounds. Absent: distended, te nderness, guarding, rebound, rigid Extremities exam: Present: normal inspection, full ROM, normal capillary refill. Absent: tenderness, pedal edema, joint swelling, calf tenderness Back exam: Present: normal inspection Neurological exam: Present: alert, oriented X3, CN II-XII intact Psychiatric exam: Present: normal affect, normal mood Skin exam: Present: warm, dry, intact, normal color. Absent: rash Course Vital Signs 07/21/24 13:02 Temperature 98.3 F Pulse Rate 88 Respiratory 18 Rate Blood Pressure 137/83 O2 Sat by Pulse 99 Oximetry - Reevaluation(s) Reevaluation #1: 07/21/24 15:16 Medical records reviewed Reevaluation #2: 07/21/24 15:16 Symptoms unchanged Reevaluation #3: 07/21/24 15:16 Patient informed of results and questions answered Reevaluation #4: Was pt. sent in by a medical professional or institution (, PA, FOAM GUN OPERATOR, urgent care, hospital, or [facility]...) When possible be specific @ -no Did you speak to anyone other than the patient for history (EMS, parent, family, police, friend...)? What history was obtained from this source @ -no Did you review nursing and triage notes (agree or disagree)? Why? @ -agree Are old charts reviewed (outside hosp., previous admission, EMS record, old EKG, old radiological studies, urgent care reports/EKG's, [facility] records)? Report findings @ -yes Differential Diagnosis (chest pain, altered mental status, abdominal pain women, abdominal pain men, vaginal bleeding, weakness, fever, dyspnea, syncope, heada zion, dizziness, GI bleed, back pain, seizure, CVA, palpatations, mental health, musculoskeletal)? @ -prior EKG interpreted by me (3pts min.). @ -yes X-rays interpreted by me (1pt min.). @ -no CT interpreted by me (1pt min.). @ -yes negative for acute disease U/S interpreted by me (1pt. min.). @ -no What testing was considered but not performed or refused? (CT, X-rays, U/S, labs)? Why? @ -none What meds were considered but not given or refused? Why? @ -none Did you discuss the management of the patient with other professionals (professionals i.e. , PA, FOAM GUN OPERATOR, lab, RT, psych nurse, drug abuse social worker, solvent mixer, teacher, zoology technical officer, special education case manager)? Give summary @ -no Was smoking cessation discussed for >3mins.? @ -no Was critical care preformed (if so, how long)? @ -no Were there social determinants of health that impacted care today? How? (Homelessness, low income, unemployed, alcoholism, drug addiction, transportation, low edu. Level, literacy, decrease access to med. care, fpc, rehab)? @ -none Was there de-escalation of care discussed even if they declined (Discuss DNR or withdrawal of care, Hospice)? DNR status @ -no What co-morbidities impacted this encounter? (DM, HTN, Smoking, COPD, CAD, Cancer, CVA, ARF, Chemo, Hep., AIDS, mental health diagnosis, sleep apnea, morb id obesity)? @ -none Was patient admitted / discharged? Hospital course, mention meds given and rou te, prescriptions, significant lab abnormalities, going to OR and other pertinent info. @ - 73 female will be discharged home after negative CT scan for elevated D- dimer Discharge Undiagnosed new problem with uncertain prognosis? @ -no Drug Therapy requiring intensive monitoring for toxicity (Heparin, Nitro, Insulin, Cardizem)? @ -no Were any procedures done? @ -no Diagnosis/symptom? @ -Chest pain Acute, or Chronic, or Acute on Chronic? @ -Acute Uncomplicated (without systemic symptoms) or Complicated (systemic symptoms)? @ -Complicated Side effects of treatment? @ -no Exacerbation, Progression, or Severe Exacerbation? @ -exacerbation Poses a threat to life or bodily function? How? (Chest pain, [place], [place], pneumonia, PE, COPD, DKA, ARF, appy, cholecystitis, CVA, Diverticulitis, Homicidal, Suicidal, threat to staff... and all critical care pts) @ -yes chest pain Reevaluation #5: Differential Dyspnea: Coronary syndrome, arrhythmia, tamponade, asthma, COPD, pulmonary embolism, pneumonia, pneumothorax, pulmonary effusion, anaphylaxis, diabetic ketoacidosis, flailed chest, pulmonary contusion, diaphragmatic rupture, anemia, neuromuscular, this is not meant to be an all-inclusive list. Medical Decision Making - Medical Decision Making 73 female will be discharged home after negative CT scan for elevated D-dimer - Lab Data Result diagrams: 07/21/24 13:17 07/21/24 13:17 Lab Results 07/21/24 07/21/24 07/21/24 Range/Units 13:17 13:17 13:59 WBC 6.1 (3.8-10.6) k/uL RBC 4.36 (3.80-5.40) m/uL Hgb 13.0 (11.4-16.0) gm/dL Hct 40.2 (34.0-46.0) % MCV 92.1 (80.0-100.0) fL MCH 29.7 (25.0-35.0) pg MCHC 32.2 (31.0-37.0) g/dL RDW 13.0 (11.5-15.5) % Plt Count 244 (150-450) k/uL MPV 7.7 Neutrophils % 61 % Lymphocytes % 26 % Monocytes % 8 % Eosinophils % 3 % Basophils % 1 % Neutrophils # 3.7 (1.3-7.7) k/uL Lymphocytes # 1.6 (1.0-4.8) k/uL Monocytes # 0.5 (0-1.0) k/uL Eosinophils # 0.2 (0-0.7) k/uL Basophils # 0.0 (0-0.2) k/uL D-Dimer 0.57 (<0.60) mg/L FEU Sodium 141 (137-145) mmol/L Potassium 4.0 (3.5-5.1) mmol/L Chloride 105 (98-107) mmol/L Carbon Dioxide 31 H (22-30) mmol/L Anion Gap 5 mmol/L BUN 24 H (7-17) mg/dL Creatinine 0.91 (0.52-1.04) mg/dL Est GFR (CKD-EPI)AfAm 72 (>60 ml/min/1.73 sqM) Est GFR (CKD-EPI)NonAf 63 (>60 ml/min/1.73 sqM) Glucose 92 (74-99) mg/dL Calcium 9.5 (8.4-10.2) mg/dL Total Bilirubin 0.4 (0.2-1.3) mg/dL AST 52 H (14-36) U/L ALT 32 (4-34) U/L Alkaline Phosphatase 62 (38-126) U/L Total Protein 7.2 (6.3-8.2) g/dL Albumin 4.4 (3.5-5.0) g/dL - EKG Data -: EKG Interpreted by Me (EKG is sinus 79 [place] 134 QRS 86 QTc 398) - Radiology Data Radiology results: report reviewed (CT angio chest negative for PE), image reviewed Disposition Clinical Impression: Dyspnea Disposition: HOME SELF-CARE Condition: Fair Instructions (If sedation given, give patient instructions): Dyspnea (ED) Is patient prescribed a controlled substance at d/c from ED?: No Referrals: Jake Bourgeois DO [Primary Care Provider] - 1-2 days
[2024-07-21 13:27] LABS: Basophils % (A) 1 %; Eosinophils # (A) 0.2 k/uL (0-0.7); Eosinophils % (A) 3 %; HCT 40.2 % (34.0-46.0); Lymphocytes # (A) 1.6 k/uL (1.0-4.8); Lymphocytes % (A) 26 %; MCH 29.7 pg (25.0-35.0); MCHC 32.2 g/dL (31.0-37.0); MCV 92.1 fL (80.0-100.0); Mean Platelet Volume 7.7; Monocytes # (A) 0.5 k/uL (0-1.0); Monocytes % (A) 8 %; Neutrophils # (A) 3.7 k/uL (1.3-7.7); Neutrophils % (A) 61 %; Platelet Count 244 k/uL (150-450); RBC 4.36 m/uL (3.80-5.40); WBC 6.1 k/uL (3.8-10.6)
[2024-07-21 13:48] LABS: ALT 32 U/L (4-34); AST 52 U/L (14-36); African American GFR (CKD) 72 (>60 ml/min/1.73 sqM); Albumin 4.4 g/dL (3.5-5.0); Alkaline Phosphatase 62 U/L (38-126); Anion Gap 5 mmol/L; Blood Urea Nitrogen 24 mg/dL (7-17); Calcium 9.5 mg/dL (8.4-10.2); Carbon Dioxide 31 mmol/L (22-30); Chloride 105 mmol/L (98-107); Glucose 92 mg/dL (74-99); Non-African American GFR(CKD) 63 (>60 ml/min/1.73 sqM); Sodium 141 mmol/L (137-145); Total Bilirubin 0.4 mg/dL (0.2-1.3); Total Protein 7.2 g/dL (6.3-8.2)
--- NOTE | 2024-07-21 15:06 | CT ---
EXAMINATION TYPE: CT angio chest DATE OF EXAM: 07/21/2024 2:56 PM COMPARISON: None HISTORY: elevated d dimer CT DLP: 194.7 mGycm Automated exposure control for dose reduction was used. CONTRAST: CTA scan of the thorax is performed with IV Contrast, patient injected with 100ml mL of Isovue 370, p ulmonary embolism protocol. 3-D postprocessing was performed.. FINDINGS: LUNGS: The lungs are grossly clear, there is no concerning parenchymal mass or nodule identified. T here is no pleural effusion or pneumothorax seen. The tracheobronchial tree is patent. MEDIASTINUM: There is satisfactory enhancement of the pulmonary artery and its branches, there is no CT evidence for pulmonary embolism. There are no greater than 1 cm hilar or mediastinal lymph nodes. No pericardial effusion is seen. OTHER: No additional significant abnormality is seen. IMPRESSION: 1. NO EVIDENCE OF PULMONARY EMBOLISM. 2. NO ACUTE CARDIOPULMONARY DISEASE. [facility], , 07/21/2024 3:03 PM
== END 2024-07-21 15:37 | disposition home or self-care (01) ==
LOC: EC 12:53
CPT/HCPCS: 36415; 71275; 80053; 85025; 85379; 93005; 96360; 99285

== ENCOUNTER → 2024-08-05 | Outpatient (CLI) | payer MEDICARE ==
[2024-08-05 15:18] LABS: HGB 14.1 g/dL (12.0-15.0); MCH 30.2 pg (27.0-32.0); MCV 94.2 FL (80.0-97.0); Mean Platelet Volume 10.5 FL (9.5-12.2); NRBC Per 100 WBC 0 X 10*3/uL (0.00-0.01); Platelet Count 267 X 10*3/uL (140-440); RBC 4.67 X 10*6/uL (4.10-5.20); RDW 13.9 % (11.5-14.5); WBC 6.61 X 10*3/uL (4.50-10.00)
[2024-08-05 16:40] LABS: Blood Urea Nitrogen 25.3 mg/dL (9.0-27.0); Carbon Dioxide 25.8 mmol/L (21.6-31.8); Chloride 103 mmol/L (96-109); Potassium 4.5 mmol/L (3.5-5.5); Sodium 141 mmol/L (135-145)
== END | disposition home or self-care (01) ==
LOC: LABPAT 10:13
PROVIDERS: ATTEND Internal Medicine Interventional Cardiology
DX: Z01.812 Encounter for preprocedural laboratory examination (principal); R07.9 Chest pain, unspecified
CPT/HCPCS: 36415; 80051; 82565; 84520; 85027

== ENCOUNTER → 2024-08-12 | Day surgery (SDC) | payer MEDICARE ==
[2024-08-06 14:57] VITALS: BMI 22.2
[~2024-08-12] MED LIST changes: +ALPRAZolam 0.25 MG TAB PO PRN; +ALPRAZolam 0.5 MG TAB PO PRN; -LACTATED RINGERS 1,000 ML IV ONE; -LACTATED RINGERS 1,000 ML IV SCH; -LIDOCAINE 1% (10MG/ML) FOR IV START INTRADERMA ONE; +NITROGLYCERIN SL TABS 0.4 MG TAB SUBLINGUAL PRN; -PROPOFOL 10 MG/ML 20 ML VIAL IV ONE; +RX INFO: IV CONTRAST WAS GIVEN 1 EACH MISC MISCELLANE PRN; +SODIUM CHLORIDE 0.9% 1,000 ML IV SCH
[2024-08-12] MEDS: SODIUM CHLORIDE 0.9% 1,000 ML in EMPTY BAG 1 BAG IV SCH (10:47)
[2024-08-12] MEDS: IV FLUID CONTINUATION 1,000 ML IV ONE (10:47)
[2024-08-12] MEDS: ATORVASTATIN 80 MG TAB PO STA (10:56)
[2024-08-12] MEDS: ASPIRIN 325 MG TAB PO STA (10:56)
[2024-08-12 10:59] VITALS: RESP 16; TEMP 97.6
[2024-08-12] MEDS: HEPARIN SODIUM,PORCINE 10,000 UNIT in SODIUM CHLORIDE 0.9% 1,000 ML IRRIGATION PRN (12:00)
[2024-08-12] MEDS: HEPARIN SODIUM,PORCINE (1 ML) 2,500 UNIT in SODIUM CHLORIDE 0.9% 250 ML IRRIGATION PRN (12:01)
[2024-08-12] MEDS: MIDAZOLAM 2 MG/2 ML VIAL IVP ONE (12:15)
[2024-08-12] MEDS: LIDOCAINE 1% INJ 10MG/ML (20 ML MDV) SQ ONE (12:17)
[2024-08-12] MEDS: VERAPAMIL SYRINGE (5 MG/10 ML) INTRAARTER ONE (12:18)
[2024-08-12] MEDS: HEPARIN SODIUM 1,000 UN/ML (10ML VL) IV ONE (12:20)
[2024-08-12] MEDS: IOPAMIDOL-370 100ML BTL INJ ONE (12:30)
--- NOTE | 2024-08-12 12:36 | P.PCN ---
Date of Procedure: 08/12/24 Operative Findings: CARDIAC CATHETERIZATION PERFORMING PHYSICIAN: Ramin Uribe MD, RPVI PROCEDURE PERFORMED: 1. Selective right and left coronary angiogram 2. Left heart catheterization 3. Ultrasound-guided access of the right radial artery INDICATION: Symptomatic 73-year-old female patient with abnormal myocardial perfusion imaging stress test COMPLICATION: None APPROACH: Right radial artery LEVEL OF SEDATION: Moderate with a sedation length of 14 minutes PROCEDURE DESCRIPTION: After obtaining an informed consent, the patient was brought to cardiac laboratory helper. Local anesthesia was performed using lidocaine subcutaneously. The right radial artery was cannulated using Seldinger technique, the guidewire passed easily, following that we advanced a 5-[place]oz[place] sheath dilator assembly, the wire and dilator were removed and sheath was flushed. Following that, 2 mg of verapamil along with 3000 unit heparin were given. Selective right and left coronary angiogram using a 6-[place] JR4 and JL 3.5 catheters. Following that we did left heart catheterization using 6-[place] pigtail catheter . The procedure was completed there was no complication. SELECTIVE CORONARY ANGIOGRAM: The right coronary artery: Large-caliber vessel and a dominant vessel appears to be angiographically normal Left main: Is angiographically normal The left circumflex: The left circumflex did not have the traditional/usual course. No evidence of high-grade stenosis identified. The left anterior descending artery: The LAD is a large-caliber vessel with no evidence of high-grade stenosis identified as well. Gives rise into multiple diagonal branches. HEMODYNAMICS: LVEDP was 18 mmHg with no significant gradient across aortic valve CONCLUSION: 1. Mild nonobstructive CAD 2. Normal left-sided filling pressure POSTPROCEDURE MANAGEMENT: Medical treatment
[2024-08-12 16:14] VITALS: PULSE 88
[2024-08-12 16:16] VITALS: BP 130/63
== END ==
LOC: CATHCVL 10:19
PROVIDERS: ATTEND Internal Medicine Interventional Cardiology
DX: R07.9 Chest pain, unspecified (principal)
CPT/HCPCS: 93458

== ENCOUNTER → 2024-09-09 | Outpatient (CLI) | payer MEDICARE ==
--- NOTE | 2024-09-09 16:27 | XR ---
EXAMINATION TYPE: XR cervical spine comp DATE OF EXAM: 09/09/2024 4:20 PM COMPARISON: none CLINICAL INDICATION: Female, 73 years old with history of [id number] CERVICALGIA,RADICULOPATHY; [facility] TECHNIQUE: The cervical spine was imaged in frontal, lateral, odontoid and bilateral oblique. FINDINGS: The osseous structures show normal alignment without evidence of an acute fracture. There are osteoph ytes noted throughout the cervical spine on the anterior and lateral aspects of the vertebral bodies. The intervertebral disk spaces are narrowed at multiple levels. Pedicles are intact. Soft tissues a re within normal limits. The odontoid appears intact. IMPRESSION: 1. No fracture or dislocation. 2. Mild degenerative disc disease changes of the cervical spine. [facility], , 09/09/2024 4:25 PM
== END | disposition home or self-care (01) ==
LOC: RADXRYALE 16:05
PROVIDERS: ATTEND Family Medicine
DX: M50.10 Cervical disc disorder with radiculopathy, unspecified cervical region (principal)
CPT/HCPCS: 72050

== ENCOUNTER → 2024-10-20 | Outpatient (CLI) | payer MEDICARE ==
--- NOTE | 2024-10-20 13:49 | CT ---
INDICATION: Patient age:Female; 73 years old; Reason for study: H70.091 MASTOIDITIS; PHH. COMPARISON: None TECHNIQUE: Multiple thin slice images were obtained through the orbits. Coronal and sagittal reforma ts were performed. No contrast given. One or more CT dose reduction strategies were utilized during this examination. Total DLP 373.50 mGycm. FINDINGS: The globes have a normal contour. Orbital simon appear intact. Bilateral aphakia. The orbital fat is unremarkable. Extraocular muscles are within normal limits. No acute fracture. Vascular sclerosis is noted to the internal carotid arteries. The osseous structures are unremarkabl e. The mastoid sinuses are clear. The bilateral internal and external auditory canals are unremarkable. The middle ears are unremarkable. Scutum are intact bilaterally. Prussak's space is clear bilaterally . Aplasia of the left frontal sinus. Remaining paranasal sinuses are clear. IMPRESSION: No evidence of orbital irregularity or mass. No CT evidence for mastoiditis. [facility], , 10/20/2024 1:47 PM
== END | disposition home or self-care (01) ==
LOC: RADCTMAIN 12:47
PROVIDERS: ATTEND Family Medicine
DX: H70.091 Acute mastoiditis with other complications, right ear (principal)
CPT/HCPCS: 70480

== ENCOUNTER → 2024-11-11 | Outpatient (CLI) | payer MEDICARE ==
--- NOTE | 2024-11-11 10:54 | MM ---
Reason for Exam: Screening (asymptomatic). Last mammogram was performed 1 year(s) and 3 month(s) ago. Patient History: Menarche at age 12. First Full-Term at age 19. Left ovary removed at age 73. Right ovary removed at age 73. Hysterectomy at age 73. Postmenopausal. 2000, Benign Core Biopsy on the left side. Risk Values: Melanie 5 year model risk: 1.5%. NCI Lifetime model risk: 3.5%. Prior Study Comparison: 05/24/2021 Bilateral Screening Mammogram, [facility]. 08/11/2022 Bilateral Screening Mammogram, Unknown. 08/22/2023 Bilateral MG 3D screening mammo w/cad, [facility]. Tissue Density: The breasts are extremely dense, which lowers the sensitivity of mammography. Findings: Analyzed By CAD. Mammogram from biopsy clip in the right breast is redemonstrated. Benign-appearing vascular calcifications bilaterally is redemonstrated. There is no suspicious new group of microcalcifications or new suspicious mass in either breast. Overall Assessment: Benign, BI-RAD 2 Management: Screening Mammogram of both breasts in 1 year. Some advised bilateral breast ultrasound surveillance in patients with background extremely dense tissue. Patient should continue monthly self-breast exams. A clinical breast exam by your physician is recommended on an annual basis. This exam should not preclude additional follow-up of suspicious palpable abnormalities. Note on Melanie scores and lifetime risk: 1. A Melanie score greater than 3% is considered moderate risk. If this is the case, consider specialist referral to assess eligibility for a risk reducing agent. 2. If overall lifetime risk for the development of breast cancer is 20% or higher, the patient may qualify for future screening with alternating mammogram and breast MRI. [facility], , 11/11/2024 10:50 AM. Electronically signed and approved by: David Kay M.D.
== END | disposition home or self-care (01) ==
LOC: RADMAMWWP 09:12
PROVIDERS: ATTEND Family Medicine
DX: Z12.31 Encounter for screening mammogram for malignant neoplasm of breast (principal); Z90.722 Acquired absence of ovaries, bilateral; Z78.0 Asymptomatic menopausal state; R92.343 Mammographic extreme density, bilateral breasts; Z98.82 Breast implant status
CPT/HCPCS: 77063; 77067

== ENCOUNTER → 2025-05-27 | Outpatient (CLI) | payer MEDICARE ==
--- NOTE | 2025-05-27 09:02 | MR ---
EXAMINATION TYPE: MR brain wo con DATE OF EXAM: 05/27/2025 8:54 AM COMPARISON: None. CLINICAL INDICATION: Female, 74 years old with history of M79.2 NEURALGIA AND NEURITIS, UNSPECIFIED, Headache, right side. TECHNIQUE: Multi planar multi sequence imaging of the brain. FINDINGS: The ventricles, basal cisterns and sulci overlying the cerebral convexities are mildly enlarged. There is evidence of moderate periventricular white matter ischemic demyelination. Remote deep white matter insults are also noted. No acute edema is seen on diffusion weighted imaging. There is no evidence for midline shift or mass effect. Acute intracranial hemorrhage or extra-axial collection is not evident. The paranasal sinuses and mastoid air cells are well-aerated. IMPRESSION: Age-related atrophic and chronic small vessel ischemic change. No acute intracranial process at this time. [facility], , 05/27/2025 8:59 AM
== END | disposition home or self-care (01) ==
LOC: RADMRIMAIN 07:42
PROVIDERS: ATTEND Family Medicine
DX: I67.82 Cerebral ischemia (principal); M79.2 Neuralgia and neuritis, unspecified; G31.1 Senile degeneration of brain, not elsewhere classified
CPT/HCPCS: 70551